=== PATIENT | female | born 1965 | race Caucasian/White ===

== ENCOUNTER 2016-10-11 14:58 | Emergency (ER) | payer OTHER ==
[~2016-10-11] VITALS: Wt 81.7 kg
[~2016-10-11 14:58] MED LIST: ACET500C5 PO; ASPI81TA3 PO; BENA20TA48 PO; FIORICET PO; FLUO40CA PO; IBUP-1542 PO; METF-480 PO; NASO17 NASAL; PARO10TA26 PO; PRAV20TA63 PO; PROP40TA4 PO; RIZA10TA18 PO; TOPI50TA5 PO; VERA120T77 PO
[2016-10-11] MEDS ORDERED: NICARDipine HCL 30 MG CAPSULE PO ONE ×3 (16:00→18:00)
[2016-10-11] MEDS ORDERED: ACET/BUTAL/CAFF TAB PO ONE (16:30)
--- NOTE | 2016-10-11 17:32 | ERD ---
ER Documentation Chief Complaint Date/Time DATE: 10/11/16 TIME: 17:24 Chief Complaint HEADACHE, ONSET 2 DAYS, DIZZINESS HPI Patient is a 51-year-old female with a history of diabetes and hypertension complaining of facial headache 2 days and nausea 1 day. Patient states that she had the same symptoms before. Pain is localized on the maxillary and periorbital area. Patient usually takes Maxalt for her headache but she ran out of the medication. Patient denies fever, shortness of breath, chest pain, palpitations, vision problems, hearing problems. Patient does complain of slight dizziness. Denies any trauma, paresthesia or paresis. ROS All systems reviewed and are negative except as per history of present illness. Medications Home Meds Active Scripts Rizatriptan Benzoate (Rizatriptan Benzoate) 10 Mg Tablet, 10 MG PO BID Y for MIGRAINE, #30 TAB may repeat after 2 hours, MAX 30 mg/24 hour Prov:TRA CARUSO 10/11/16 Ondansetron Hcl* (Zofran*) 4 Mg Tablet, 4 MG PO Q6H for NAUSEA AND/OR VOMITING, #30 TAB Prov:TRA CARUSO 10/11/16 Acetamin/Butalbital/Caffeine* (Fioricet*) 1 Tab Tab, 1 TAB PO Q4H Y for PAIN LEVEL 1-5, #20 TAB Prov:DIEGO CANAS [employer] 02/17/16 Acetaminophen* (Tylophen*) 500 Mg Capsule, 1 CAP PO Q6H Y for PAIN AND OR ELEVATED TEMP, #30 CAP 0 Refills Prov:SANIYA MORAES PA-C 02/12/16 Reported Medications Verapamil Hcl* (Verapamil ER*) 120 Mg Tablet.er, 120 MG PO DAILY, TAB.SA 12/13/14 Topiramate* (Topiramate*) 50 Mg Tablet, 50 MG PO BID, TAB 12/13/14 Propranolol Hcl* (Propranolol Hcl*) 40 Mg Tablet, 40 MG PO BID, TAB 12/13/14 Pravastatin Sodium* (Pravastatin Sodium*) 20 Mg Tablet, 20 MG PO HS, TAB 12/13/14 Paroxetine Hcl* (Paxil*) 10 Mg Tablet, 10 MG PO DAILY, TAB 12/13/14 Mometasone Furoate* (Nasonex*) 50 Mcg/Steuben - 17 Gm Steuben.pump, 2 SPRAY NASAL DAILY, SPRAYS 12/13/14 Metformin* (Glucophage*) 850 Mg Tablet, 850 MG PO WITH BREAKFAST, TAB 12/13/14 Rizatriptan Benzoate (Maxalt) 10 Mg Tablet, 10 MG PO DAILY, TAB may repeat after 2 hours, MAX 30 mg/24 hour 12/13/14 Aspirin* (Aspirin* Chew) 81 Mg Tab.chew, 81 MG PO DAILY, TAB.CHEW 12/13/14 Ibuprofen* (Ibuprofen*) 600 Mg Tablet, 600 MG PO Q8 Y for PAIN, TAB 12/13/14 Fluoxetine Hcl* (Fluoxetine Hcl*) 40 Mg Capsule, 40 MG PO DAILY, CAP 12/13/14 Benazepril Hcl* (Benazepril Hcl*) 20 Mg Tablet, 20 MG PO DAILY, TAB 12/13/14 Allergies Allergies: Coded Allergies: No Known Allergy (Unverified , 12/13/14) PMhx/Soc History of Surgery: Yes (hysterectomy) Anesthesia Reaction: No Hx Neurological Disorder: Yes (migraines) Hx Respiratory Disorders: No Hx Cardiac Disorders: Yes (htn) Hx Miscellaneous Medical Probl: Yes (DM) Hx Alcohol Use: No Hx Substance Use: No Hx Tobacco Use: No Smoking Status: Never smoker Physical Exam Vitals Vital Signs Date Time Temp Pulse Resp B/P Pulse Ox O2 Delivery O2 Flow Rate FiO2 10/11/16 17:49 59 18 187/94 100 Room Air 10/11/16 16:43 18 186/91 10/11/16 14:59 97.9 71 18 188/66 97 Physical Exam Physical Exam CONST: Well-developed, well-nourished, in no acute distress. HEENT: Atraumatic. Normal Conjunctiva. EOM intact. TM intact. External ear is normal. Clear oropharnyx without erythema. Moist mucous membranes. Supple. Full range of motion. No meningismus. No submandibular induration. RESP: Clear to auscultation bilaterally. No wheezing. CARDIO: Regular rate and rhythm, no murmurs ABD: Soft, non tender, non distended. Normal bowel sounds. No McBurney's point tenderness. No guarding or rigidity. No peritoneal signs. SKIN: No petechiae or rashes BACK: No midline or flank tenderness EXT: No cyanosis or edema. Distal pulses equal and bilateral NEURO: Awake and alert, appropriate for age. Negative for Romberg's test. Results 24 hrs Current Medications Medications (Trade) Dose Ordered Sig/Gerald Route PRN Reason Start Time Stop Time Status Last Admin Dose Admin Nicardipine HCl (Cardene) 30 mg ONCE ONCE PO 10/11/16 16:00 10/11/16 16:11 DC Acetaminophen/ Butalbital/ Caffeine (Fioricet) 1 tab ONCE ONCE PO 10/11/16 16:30 10/11/16 16:31 DC 10/11/16 17:03 Nicardipine HCl (Cardene) 30 mg ONCE ONCE PO 10/11/16 17:00 10/11/16 17:01 DC 10/11/16 17:02 Nicardipine HCl (Cardene) 30 mg ONCE ONCE PO 10/11/16 18:00 10/11/16 18:01 DC 10/11/16 18:06 Procedures/MDM EMERGENCY DEPARTMENT COURSE/MEDICAL DECISION MAKING This is a 51-year-old female who comes to the emergency room secondary to complaints of headache and nausea. The patient was given Fioricet in the department. On re-evaluation, the patient' s headache was resolved. Initial blood pressure was 180/66 and Cardene was given. Blood pressure remained at 182/94. Discussed with Dr. Mercer and agreed to discharge the patient who is asymptomatic at this time. My primary diagnosis is migraine headache. Secondary diagnosis is nausea Differential diagnoses considered, included but not limited to intracranial hemorrhage, giant cell arthritis, fibromyalgia, I have discussed the lab results and diagnostic findings with the patient and answered any questions or concerns. The patient was discharged for outpatient management with a prescription for Maxalt and zofran. The patient was advised to followup with their PMD in 1-2 days and to return to the Emergency Department if there are any new or worsening symptoms. The patient understood and agreed with the diagnosis, treatment and plan. The patient is stable for discharge at this time. Departure Diagnosis: Primary Impression: Migraine headache Migraine type: unspecified Status migrainosus presence: without status migrainosus Intractability: intractable Qualified Code: G43.919 - Intractable migraine without status migrainosus, unspecified migraine type Additional Impression: Nausea Condition: Good Patient Instructions: Headache, Migraine (Classical) [facility] Usted se guajardo hecho un examen mdico de control que le indica que no est en barbara condicin que requiera tratamiento urgente en el Departamento de Emergencia. Un estudio ms profundo y el tratamiento de lares condicin pueden esperar sin ningn riesgo hasta que usted sea atendida/o en el consultorio de lares mdico o barbara cl robby. Es responsabilidad suya arreglar barbara leon para el seguimiento del carmela. MANEJO DE CONDICIONES NO URGENTES EN EL FUTURO 1) Si usted tiene un mdico de atencin primaria: Usted debera llamar a lares mdico de atencin primaria antes de venir al departamento de emergencia. Despus de las horas de consultorio, lares doctor o lares asociado/a est disponible por telfono. El mdico o enfermero de jacky en el servicio telefnico puede asesorarle por babs medio para atender el problema, o carmela contrario se puede programar barbara leon. 2) Si usted no tiene un mdico de atencin primaria: Llame al mdico o clnica de referencia que aparece abajo viral las horas de consultorio para hacer barbara leon para que le vean. CLINICAS: [facility] [phone] [facility] [phone] [facility] [phone] [address] [facility] [facility] [phone] [address] [facility] [address] [place] [address] [phone] [facility]. [phone] [address] [facility] () Usted se guajardo hecho un examen mdico de control que le indica que no est en barbara condicin que requiera tratamiento urgente en el Departamento de Emergencia. Un estudio ms profundo y el tratamiento de lares condicin pueden esperar sin ningn riesgo hasta que usted sea atendida/o en el consultorio de lares mdico o barbara cl robby. Es responsabilidad suya arreglar barbara leon para el seguimiento del carmela. MANEJO DE CONDICIONES NO URGENTES EN EL FUTURO 1) Si usted tiene un mdico de atencin primaria: Usted debera llamar a lares mdico de atencin primaria antes de venir al departamento de emergencia. Despus de las horas de consultorio, lares doctor o lares asociado/a est disponible por telfono. El mdico o enfermero de jacky en el servicio telefnico puede asesorarle por babs medio para atender el problema, o carmela contrario se puede programar barbara leon. 2) Si usted no tiene un mdico de atencin primaria: Llame al mdico o condado institucions de referencia que aparece abajo viral las horas de consultorio para hacer barbara leon para que le vean. SI USTED NO PUEDE PAGAR PARA STORMY UN MEDICO puede ir a: [facility] [address] [place] [address] [facility] [address] [place] [address] [facility] [address] [place] [address] [facility] [address] [place] [address] Additional Instructions: Follow-up with your primary care physician within 1 week. Return to the emergency department immediately should you have any new or worsening symptoms, uncontrolled fevers, or other unexplained symptoms. Take all medications as directed. TRA CARUSO Oct 11, 2016 17:32
[2016-10-11 17:49] VITALS: PULSE 59; RESP 18
[2016-10-11] MEDS ORDERED: RIZA10TA21 PO (18:08)
[2016-10-11] MEDS ORDERED: ONDA4TAB8 PO (18:08)
[2016-10-11 18:18] VITALS: BP 158/98
== END 2016-10-11 18:18 | disposition home or self-care (01) ==
LOC: FTE 14:58
DX: G43.919 Migraine, unspecified, intractable, without status migrainosus (principal); R11.0 Nausea; I10 Essential (primary) hypertension; E11.9 Type 2 diabetes mellitus without complications; Z79.82 Long term (current) use of aspirin; Z79.84 Long term (current) use of oral hypoglycemic drugs
CPT/HCPCS: Z7502; Z7610; 99284

== ENCOUNTER 2017-12-22 07:08 | Day surgery (SDC) | END 2017-12-22 15:06 | disposition home or self-care (01) ==